=== PATIENT | male | born 1965 | race Caucasian/White ===

== ENCOUNTER 2016-09-23 01:02 | Inpatient (IN) | payer OTHER ==
[~2016-09-23] VITALS: Ht 180.3 cm; Wt 97.5 kg
[~2016-09-23 01:02] MED LIST: LISINOPRIL-HCT1 EAC2 PO
[2016-09-23] MEDS ORDERED: MS CONTIN15 M2 PO (09:48)
[2016-09-23] MEDS ORDERED: COLACE100 M1 PO (09:48)
[2016-09-23] MEDS ORDERED: ASPIRIN EC325 M2 PO (09:48)
[2016-09-23] MEDS ORDERED: MIRALAX17 G1 PO (09:48)
[2016-09-23] MEDS ORDERED: DILAUDID2 M1 PO (09:48)
--- NOTE | 2016-09-23 09:51 | Patient Discharge Instructions ---
Discharge Instructions General Discharge Information You were seen/treated for: left hip primary osteoarthritis You had these procedures: left Total hip arthroplasty Watch for these problems: Increasing pain despite the use of pain medication Increasing redness, warmth or swelling Drainage of any type from incision Inability to bear weight on operative leg Persistent nausea and vomiting Fever greater than 101.5 degrees Other wound care: Please keep wound clean and dry. No ointments or lotions of any type on or near incision at any time. No exceptions. Your dressing will be changed by your nurse on the second day after your surgery. Daily dry dressing changes are recommended each day thereafter. Do not soak your wound in a bath at any time until otherwise indicated by your surgeon. You may shower, please dry wound immediately after shower with a clean towel. Special Instructions: Aspirin: You are taking this medication to help prevent blood clot formation. Please take with food to protect your stomach lining. Please take as directed. Constipation: Pain medication can cause constipation. Dr. Ott has recommended that you take Colace and miralax each day. You may discontinue this medication if you develop loose stool or diarrhea. If you wish to continue this medication, it is available over the counter. If you are unable to move your bowels after several days, if you are unable to pass gas and are developing bloating, nausea, or vomiting as a result, please contact your doctor. Diet Continue normal diet: Yes Recommended Diet: Regular Activity Activity Limited to: Weight bear as tolerated Other activity limits: Use assistive devices as needed Acute Coronary Syndrome Inclusion Criteria At DC or during hospital stay patient has or had the following: Discharge Core Measures Meds if any: Prescribed or Continued at Discharge Meds if any: NOT Prescribed or Continued at Discharge Congestive Heart Failure Inclusion Criteria At DC or during hospital stay patient has or had the following: Discharge Core Measures Meds if any: Prescribed or Continued at Discharge Meds if any: NOT Prescribed or Continued at Discharge Cerebrovascular accident Inclusion Criteria At DC or during hospital stay patient has or had the following: Discharge Core Measures Meds if any: Prescribed or Continued at Discharge Meds if any: NOT Prescribed or Continued at Discharge Venous thromboembolism Discharge Core Measures - Per Current guidelines, there needs to be overlap - treatment for the first 5 days of Warfarin therapy. - If discharged on Warfarin prior to 5 days of - overlap therapy, the patient will need to be - assessed for post discharge needs including - *Post discharge parental anticoagulation - *Warfarin and/or parental anticoagulation education - *Follow up date to check INR post discharge Meds if any: Prescribed or Continued at Discharge Note: Overlap Therapy is Warfarin and Anticoagulant Meds if any: NOT Prescribed or Continued at Discharge
--- NOTE | 2016-09-23 09:55 | Admission Core Measures ---
Admission Meds I reviewed the following Meds: Current Medications Sig/Falguni Start time Last Medication Dose Stop Time Status Admin Acetaminophen 975 MG ONCE 09/23 0000 NR (Tylenol) 09/23 2358 Cefazolin Sodium 2,000 MG ONCE 09/23 0000 NR (Kefzol-Ancef Inj) 09/23 2358 Lisinopril 10 MG DAILY 09/23 1000 AC (Prinivil) Oxycodone HCl 10 MG ONCE 09/23 0000 NR (Roxicodone) 09/23 2358 Acute Coronary Syndrome Inclusion Criteria ACS Diagnosis No Inpatient Core Measures LDL Reminder: If No, please order W/I first 24hr of stay Congestive Heart Failure Inclusion Criteria CHF Diagnosis No Cerebrovascular accident Inclusion Criteria CVA/TIA Diagnosis No Inpatient Core Measures Bedside Swallow Eval Reminder: If BSE failed, place ST order Antithrombotic Reminder: Order Antithrombotic Medication by end of day 2 Antithrombotic Reminder: Document Reason Antithrombotic Not ordered by end of day 2 AFIB/Flutter Reminder: If Present, add to problem list AFIB/Flutter Reminder: Order Anticoag Medication for pts with AFIB/Flutter Atherosclerosis Reminder: If Present, add to problem list LDL Reminder: If No, please order W/I first 24hr of stay PT Order Reminder: If No, please order Venous thromboembolism Inpatient Core Measures VTE Risk Factors: [facility] prophylaxis d/t No contraindications No VTE Pharm Prophylaxis d/t No contraindications Inclusion Criteria - Per Current guidelines, there needs to be overlap - treatment for the first 5 days of Warfarin therapy. - Parenteral Anticoagulation (IV or SC) needs to be - given along with Warfarin therapy. VTE Diagnosis No VTE Type NONE VTE Confirmed by (Test) NONE Problem List As ranked by this Provider includes Assessment & Plan 1. Primary osteoarthritis of left hip HOME MEDS Home Med List Aspirin (Ecotrin*) 325 MG TABLET.DR 1 TAB PO BID ANTICOAGULATION Docusate Sodium (Colace) 100 MG CAPSULE 1 CAP PO BID STOOL SOFTENER Hydromorphone HCl (Dilaudid) 2 MG TABLET 1-2 TAB PO Q4-6 PRN PRN PAIN Lisinopril/Hydrochlorothiazide (Lisinopril-Hctz 10-12.5 MG Tab) 10 MG-12.5 MG TABLET 1 TAB PO DAILY HTN (Reported) Morphine Sulfate (Ms Contin) 15 MG TABLET.ER 15 MG PO BID PAIN Polyethylene Glycol 3350 (Miralax) 17 GRAM POWD.PACK 1 PAC PO DAILY CONSTIPATION
--- NOTE | 2016-09-23 09:58 | Surg Short-stay <48hrs Dis Sum ---
Visit Information Visit Dates Admission Date: 09/23/16 Discharge Date: 09/24/16 Surgical Short Stay DC Summary Admission Diagnosis: left hip primary osteoarthritis Final Diagnosis: same, s/p left Total hip arthroplasty Procedure(s): left Total hip arthroplasty Summary/Significant Findings: Patient was admitted to the hospital for an elective total joint replacement. The procedure was tolerated well and patient was transferred to a general surgical floor. Diet was advanced and tolerated, and the patient voided spontaneously. The patient was evaluated and treated by physical therapy. At the time of hospital discharge, the vital signs were stable, neurovascular status was intact, and pain was controlled with the use of oral pain medications. Condition at Discharge: stable Discharge Disposition: home health services Discharge instructions provided to patient/family: Yes Post discharge follow-up plan: Follow up with Dr. Ott in 6 weeks from date of surgery. Please call his office to arrange and/or confirm this appointment.
--- NOTE | 2016-09-23 11:34 | RADIOLOGY REPORT ---
EXAMINATION: XR HIP, LEFT CLINICAL INFORMATION: Status post left hip replacement. COMPARISON: None TECHNIQUE: AP and crosstable lateral views of the left hip. FINDINGS: A left hip prosthesis is in appropriate position. There is no evidence for failure or migration. There is expected subcutaneous gas. IMPRESSION: Expected appearance to left hip prosthesis following placement.
[2016-09-23 12:40] VITALS: BP 108/74
--- NOTE | 2016-09-23 13:27 | PN- Orthopedic ---
Subjective Subjective: Patient received on general surgical floor in no acute distress. Does not acknowledge pain presently, states that his buttocks is numb and denies any discomfort to the surgical site. He denies chest pain, shortness of breath and difficulty breathing. He denies nausea and vomitting. He has yet to void. He has yet to ambulate. Objective Vital Signs and I&Os Intake & Output 09/23 1600 09/23 0800 09/23 0000 09/22 1600 09/22 0800 09/22 0000 Intake Total Output Total Balance Patient 215 lb Weight Physical Exam: General: Alert and oriented x3, no acute distress Cards: RRR, s1s2 Pulm: C T A bilaterally Abd: Soft, non-tender, non-distended Extremities: Moves all extremities, distal sensation intact. Skin warm and well perfused. DP pulses palpable bialterally. Bilateral calves soft and non- tender. Surgical site dressing dry and intact, thigh compartment soft. Assessment/Plan Assessment/Plan This is a 51 year old male, POD 0, s/p L THR -Activity: OOB, wbat -DVT ppx: ASA 325 bid to start tonight -ABX ppx: Ancef x2 additional doses -Pain regimen: Morphine and dilaudid -Dispo planning: home tomorrow Core Measures/Miscellaneous Venous Thromboembolism VTE Risk Factors: Age > 40, Surgery VTE Contraindications: No Contraindications VTE Diagnosis: No VTE Type: NONE VTE Confirmed by (Test): NONE Beta Lillian Is Beta Lillian a Home Med? No Antibiotics Is Patient on Antibiotics? Yes If Yes: prophylaxis
[2016-09-23 15:17] VITALS: BP 120/60
[2016-09-23 16:59] VITALS: BP 132/70
--- NOTE | 2016-09-23 18:02 | Operative Report ---
Operative/Inv Procedure Report Surgery Date: 09/23/16 Name of Procedure: 1. Left total hip replacement 2. Left knee aspiration Pre-Operative Diagnosis: 1. Primary left hip DJD 2. Left knee effusion Post-Operative Diagnosis: Same Estimated Blood Loss: 250 Surgeon/Edger Tailer: ASIA BARKER,VIOLETA Diego Anesthesia: block Operative/Procedure Note Note: Description of Procedure: The patient was taken to the operating room and positively identified. After induction of spinal anesthesia and administration of appropriate pre-operative antibiotics, the patient was positioned supine on the operating room table and all bony prominences were well padded. His left knee was prepped sterilely and aspirated for 60 mL of clear yellow fluid. After performing a surgical timeout, the left lower extremity was prepped and draped in the usual sterile fashion. A direct anterior approach was made to the left hip. The incision was carried sharply through superficial soft tissues to the level of the fascia. Meticulous hemostasis was maintained with Bovie electocautery. The fascia over the tensor fascia sukumar muscle was opened sharply and the interval between the TFL and the sartorius was entered bluntly taking care to stay lateral to the lateral femoral cutaneous nerve. Retractors were placed around the femoral neck and the pericapsular fat was identified. The ascending branches of the lateral femoral circumflex vessels were identified and carefully coagulated. The pericapsular fat and anterior capsule were then resected. A napkin ring osteotomy was performed and the femoral head was removed without difficulty. Attention was then turned to the acetabulum. After appropriate placement of retractors, the acetabulum was exposed. Soft tissue was cleaned from the acetabular margin and notch. Overhanging osteophytes were removed and the teardrop was exposed. The acetabulum was then sequentially reamed to accept a 64 mm [place] Tritanium hemispherical solid back shell. This was impacted into place in the appropriate position and fitted with a 36 mm Trident X3 zero degree polyethylene insert. Attention was then turned to the femur. After performing the appropriate ligament releases, the proximal femur was exposed. It was then sequentially broached to accept a size 6 [place] accolade 2 stem. This was trialed for leg length and stability. The trial component was removed and the final component was impacted into place. The trunnion was carefully cleaned and fit with a 36 mm, +5 Biolox delta ceramic femoral head. The hip was reduced and put through a full range of motion and found to be stable. The articular space was then irrigated with sterile saline. The periarticular soft tissues were infilitrated with Marcaine. The fascial layer was closed with interrupted #1 vicryl suture and the skin was re-approximated with interrupted 2 -0 vicryl. The skin was closed with a running 3-0 V-Lock suture. Steri-strips and a sterile dressing were applied. The patient was awakened and taken to the recovery room in satisfactory condition.
[2016-09-23 19:35] VITALS: BP 130/72
[2016-09-23 21:52] VITALS: BP 118/76
[2016-09-24 02:03] VITALS: BP 136/78
[2016-09-24 06:00] VITALS: BP 146/90
[2016-09-24 09:11] LABS: ABSOLUTE BASOPHIL COUNT 0 /CUMM (0.0-0.2); ABSOLUTE EOSINOPHIL COUNT 0 /CUMM (0.0-0.7); ABSOLUTE GRANULOCYTE CT 7.4 /CUMM (1.4-6.5); ABSOLUTE LYMPH COUNT 1.1 /CUMM (1.2-3.4); ABSOLUTE MONOCYTE COUNT 0.7 /CUMM (0.10-0.60); BASOPHIL % 0.3 % (0.0-2.0); EOSINOPHIL % 0.1 % (0-5); GRANULOCYTE % 80.2 % (42.2-75.2); HEMATOCRIT 36.4 % (42-52); MEAN CORPUSCULAR HGB 28.8 PG (27.0-31.0); MEAN CORPUSCULAR HGB CONC 33.7 G/DL (33.0-37.0); MEAN CORPUSCULAR VOLUME 85.4 FL (80.0-94.0); PLATELET COUNT 195 /CUMM (130-400); RED BLOOD CELL CT 4.26 /CUMM (4.70-6.10); WHITE BLOOD CELL COUNT 9.3 /CUMM (4.8-10.8)
--- NOTE | 2016-09-24 09:38 | PN- Orthopedic ---
Subjective Subjective: Reports expected left hip discomfort. Doing well with PT. No dizziness. No shortness of breath. No chest pains. Tolerating diet. No nausea. Voiding well. Anticipates discharge to home today. Objective Vital Signs and I&Os Vital Signs Date Time Temp Pulse Resp B/P B/P Pulse O2 O2 Flow FiO2 Mean Ox Delivery Rate 09/24 0840 64 136/84 09/24 0600 98.1 58 18 146/90 97 Room Air 09/24 0203 98.2 75 20 136/78 98 Room Air 09/23 2152 98.6 60 18 118/76 98 09/23 1935 98.2 67 20 130/72 98 09/23 1659 98.0 64 18 132/70 96 09/23 1517 98.2 60 20 120/60 96 Room Air 09/23 1456 Room Air 09/23 1240 97.5 55 18 108/74 98 Room Air Room Air Intake & Output 09/24 1600 09/24 0800 09/24 0000 09/23 1600 09/23 0800 09/23 0000 Intake Total 950 1005 580 Output Total 600 Balance 350 1005 580 Intake, IV 600 525 100 Intake, Oral 350 480 480 Output, Drainage Output, Urine 600 Patient 215 lb Weight Physical Exam: General - alert & oriented x 3. comfortable. no acute distress. Lungs - clear bilaterally. no w/r/r. Cardiac - s1s2. reg. Abdomen - soft. nontender. Extremities - warm bilaterally. no c/c/e. calves soft and nontender b/l. nvi. left hip dressing c/d/i. no drains. no hematoma. Current Medications: Current Medications Sig/Falguni Start time Last Medication Dose Route Stop Time Status Admin Acetaminophen 650 MG .STK-MED ONE 09/24 0031 DC PO 09/24 0032 Acetaminophen 650 MG Q4P PRN 09/23 1300 AC 09/24 PO 0601 Acetaminophen 975 MG ONCE 09/23 0000 DC PO 09/23 2359 Aspirin 325 MG BID 09/23 1000 AC 09/24 PO 0840 Cefazolin Sodium 2 GM IQ8 09/23 1600 DC 09/24 N/A 1 UNIT IV 09/24 0029 0027 Cefazolin Sodium 2,000 MG ONCE 09/23 0000 DC IV 09/23 2359 Dextrose/Sodium 1,000 ML .[id number] 09/23 1300 DC 09/23 Chloride IV 2137 Docusate Sodium 100 MG BID 09/23 1000 AC 09/24 PO 0840 Hydrochlorothiazide 12.5 MG DAILY 09/23 1000 AC 09/24 PO 0840 Hydromorphone HCl 2 MG Q4P PRN 09/23 1300 AC 09/23 PO 1636 Hydromorphone HCl 4 MG Q4P PRN 09/23 1300 AC PO Hydromorphone HCl 2 MG .STK-MED ONE 09/23 1115 DC IM 09/23 1116 Ketorolac 15 MG Q8P PRN 09/23 1300 AC Tromethamine IM 09/26 1250 Lisinopril 10 MG DAILY 09/24 1000 AC 09/24 PO 0840 Lisinopril 10 MG DAILY 09/23 1000 DC PO Meperidine HCl 50 MG .STK-MED ONE 09/23 1115 DC IM 09/23 1116 Morphine Sulfate 2 MG Q2P PRN 09/23 1430 AC IV Morphine Sulfate 0 Q2P PRN 09/23 1300 DC IV Omeprazole 20 MG DAILY AC 09/24 0700 AC 09/24 PO 0600 Ondansetron HCl 4 MG Q6P PRN 09/23 1300 AC IV Oxycodone HCl 10 MG ONCE 09/23 0000 DC PO 09/23 2359 Patient Medication 1 ED .STK-MED ONE 09/23 1425 DC Teaching ED 09/23 1426 Polyethylene Glycol 17 GM DAILY 09/23 1000 AC 09/24 PO 0845 Promethazine HCl 12.5 MG Q6P PRN 09/23 1300 AC IV 09/30 0944 Results Last 48 Hours of Labs: Laboratory Tests 09/24 0632 Chemistry Sodium (137 - 145 mmol/L) 138 Potassium (3.5 - 5.1 mmol/L) 4.4 Chloride (98 - 107 mmol/L) 101 Carbon Dioxide (22 - 30 mmol/L) 26 Anion Gap (5 - 16) 11 BUN (9 - 20 mg/dL) 11 Creatinine (0.7 - 1.2 mg/dL) 0.8 Estimated GFR (>60 ml/min) > 60 BUN/Creatinine Ratio (7 - 25 %) 13.8 Hematology CBC w Diff Pending WBC Pending RBC Pending Hgb Pending Hct Pending MCV Pending MCH Pending RDW Pending Plt Count Pending MPV Pending PUBS MCHC Pending Assessment/Plan Assessment/Plan This is a 51 year old male with hx htn now POD#1 s/p L THR for primary left hip DHD, and Left knee aspiration for left knee effusion tolerating diet. d/c iv fluids pain controlled currently cleared by PT for home today. wbat. andreas-operative antibiotics completed asa 325 bid - dvt ppx d/c home today will d/w Core Measures/Miscellaneous Venous Thromboembolism VTE Risk Factors: Age > 40, Surgery VTE Contraindications: No Contraindications VTE Diagnosis: No VTE Type: NONE VTE Confirmed by (Test): NONE Beta Lillian Is Beta Lillian a Home Med? No Antibiotics Is Patient on Antibiotics? Yes If Yes: prophylaxis
[2016-09-24 10:47] VITALS: BP 140/70
== END 2016-09-24 10:50 | disposition home health service (06) | DRG 470 ==
LOC: SDA 01:02 → ENRESERV 11:46 → ENTRNSPT 12:06 → EDTRNSPTSTS 12:30 → EDTRNSPT 12:32 → 2NA 12:36 → CMPTRNSPT 12:41 → ENPENDDIS 09-24 09:39 → 2NA 09-24 10:50
PROVIDERS: Physician Assistant Surgical; ADMIT Orthopaedic Surgery
PROC: 0S9D3ZZ Drainage of Left Knee Joint, Percutaneous Approach (ICD-10-PCS; principal; 2016-09-23)
PROC: 0SRB04A Replacement of Left Hip Joint with Ceramic on Polyethylene Synthetic Substitute, Uncemented, Open Approach (ICD-10-PCS; principal; 2016-09-23)
DX: M16.12 Unilateral primary osteoarthritis, left hip (principal); I10 Essential (primary) hypertension; M25.462 Effusion, left knee
CPT/HCPCS: 2NAP; 36415; 73502-LT; 82436; 97110-GO; 97116-GO; 97161-GP; 97530-GO; J0690; J0735; J2550; J7042